=== PATIENT | male | born 1950 | race Caucasian/White ===

== ENCOUNTER 2017-03-17 09:34 | Observation (INO) | payer OTHER, BC ==
[2017-03-17] MEDS ORDERED: ASPIRIN EC 325 MG TAB PO ONE (09:42)
[2017-03-17] MEDS ORDERED: NS 1,000 ML IV ONE (09:42)
[2017-03-17] MEDS ORDERED: DIAZEPAM 5 MG TAB PO ONE (09:42)
[2017-03-17] MEDS ORDERED: diphenhydrAMINE 25 MG CAP PO ONE (09:42)
[2017-03-17] MEDS ORDERED: FAMOTIDINE 20 MG TAB PO ONE (09:42)
--- NOTE | 2017-03-17 09:54 | CPEKG ---
Heart Rate: 78 RR Interval: 769 P-R Interval: 184 QRSD Interval: 144 QT Interval: 444 QTC Interval: 506 P [place]: 61 QRS [place]: -24 T Wave [place]: 142 EKG Severity - ABNORMAL ECG - EKG Impression: SINUS RHYTHM EKG Impression: VENTRICULAR PREMATURE COMPLEX EKG Impression: PROBABLE LEFT ATRIAL ABNORMALITY EKG Impression: LEFT BUNDLE BRANCH BLOCK Electronically Signed By: Kamilla Giraldo 17-Mar-2017 17:09:45
[2017-03-17 10:16] LABS: INR 1.02 (0.83-1.16); PROTIME(PATIENT) 13.3 SEC (12.0-15.0)
[2017-03-17 10:18] LABS: % IMMATURE GRANULYOCYTES 0.3 % (0.0-1.1); ABSOLUTE IMMATURE GRANULOCYTES 0.02 10^3/uL (0.00-0.10); ADD DIFF? NO; ADD MORPH? NO; ADD SCAN? NO; ATYPICAL LYMPHOCYTE FLAG 10 (0-99); FRAGMENT RBC FLAG 0 (0-99); HEMATOCRIT 42.2 % (40.0-51.0); HEMOGLOBIN 14.6 g/dL (13.7-17.5); LEFT SHIFT FLG 0 (0-99); LIPEMIA HEMOLYSIS FLAG 90 (0-99); MEAN CELL HEMOGLOBIN 29.8 pg (27.9-34.1); MEAN CELL HEMOGLOBIN CONCENTR. 34.6 g/dL (32.4-36.7); MEAN CELL VOLUME 86.1 fL (81.5-99.8); MEAN PLATELET VOLUME 10.5 fL (8.7-11.7); PLATELET CLUMPS FLAG 10 (0-99); PLATELET COUNT 219 10^3/uL (150-400); RED CELL DISTRIBUTION WIDTH 12.7 % (11.5-15.2)
[2017-03-17 10:38] LABS: ANION GAP 13 mEq/L (8-16); CALCIUM 9.6 mg/dL (8.5-10.4); CARBON DIOXIDE 23 mEq/l (22-31); CHLORIDE 104 mEq/L (97-110); CHOLESTEROL 127 mg/dL (140-220); CHOLESTEROL/HDL RATIO 2.89 RATIO (1.00-4.97); CREATININE 0.9 mg/dL (0.7-1.3); GLOMERULAR FILTRATION RATE > 60; GLUCOSE 165 mg/dL (70-100); HIGH DENSITY LIPOPROTEIN 44 mg/dL (40-65); LDL/HDL RATIO 1.32 RATIO (1.00-3.64); LOW DENSITY LIPOPROTEIN 58 mg/dL (80-100); MAGNESIUM 1.8 mg/dL (1.6-2.3); NON-HIGH DENSITY LIPOPROTEIN 83 mg/dL (90-129); POTASSIUM 4.2 mEq/L (3.5-5.2); SODIUM 140 mEq/L (134-144); TRIGLYCERIDE 128 mg/dL (40-150); VERY LOW DENSITY LIPOPROTEINS 25 mg/dL (8-25)
[2017-03-17] MEDS ORDERED: LIDOCAINE 1% 30 ML SDV ONE (14:05)
[2017-03-17] MEDS ORDERED: MIDAZOLAM 2 MG/2 ML VIAL ONE ×2 (14:06→15:09)
[2017-03-17] MEDS ORDERED: IOPAMIDOL (ISOVUE-370) 150 ML BTL IV ONE (14:06)
[2017-03-17] MEDS ORDERED: fentaNYL 100 MCG/2 ML INJ ONE (14:06)
[2017-03-17] MEDS ORDERED: BIVALIRUDIN 250 MG/5 ML VIAL IV ONE (15:08)
[2017-03-17] MEDS ORDERED: NITROGLYCERIN 1,500 MCG/15 ML VIAL MISC ONE (15:09)
[2017-03-17] MEDS ORDERED: PRASUGREL HCL 10 MG TAB ONE (15:38)
--- NOTE | 2017-03-17 15:48 | PDDXCAT ---
Diagnostic Cath Note - . 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 No clear luminal irregularities were noted. There is an ostial occlusion of the LCX noted LAD: Medium sized vessel with diffuse, non critical disease. Diag1 (small) with ostial disease. Could not visualize the HIDALGO touchdown on this vessel. LCX: 100% occlusion to the ostium. No appreciable left to left collaterals were noted. RCA: subtotal occlusion to in the mid vessel. Minimal right to right collaterals were noted. Ramus: Medium sized vessel with subtotal occlusion in the proximal vessel. (90% ) rSVG: (1) rSVT to PDA widely patent. Backfill to the 100% occlusion in the [place] RCA. (2) rSVT to OM1 widely patent. Backfill to [place] LCX and with forward flow down the mid LCX HIDALGO: Atretic without appreciable flow past the mid line of the vessel. EDP: not assessed given AVR LVEF: not assessed given AVR Wall motion: not assessed given AVR Complications: none Estimated blood loss: <50ml Closure method: manual pressure (The patient's bifurcation was very high, and closure device is contraindicated) Assessment: 67 y/o male with known CAD s/p 3V CABG about 4 years ago with rSVG to PDA (patent), rSVG to OM/LCX (patent), and HIDALGO to LAD (atretic). Critical lesion to the proximal Ramus vessel. Plan: Dr. Rebeca Oden to perform PCI to the proximal lesion in the Ramus vessel. Intervention: PCI to proximal Ramus
[2017-03-17] MEDS ORDERED: PRASUGREL HCL 10 MG TAB PO ONE (16:13)
[2017-03-17] MEDS ORDERED: LORazepam 2 MG/ML INJ IVP PRN (16:13)
[2017-03-17] MEDS ORDERED: ACETAMINOPHEN 325 MG TAB PO PRN (16:13)
[2017-03-17] MEDS ORDERED: ONDANSETRON 4 MG/2 ML VIAL IVP PRN (16:13)
[2017-03-17] MEDS ORDERED: ATROPINE SULFATE 1 MG/10 ML SYR IVP PRN (16:13)
[2017-03-17] MEDS ORDERED: HYDROCODONE/APAP 5/325 TAB PO PRN (16:13)
[2017-03-17] MEDS ORDERED: TEMAZEPAM 15 MG CAP PO PRN (16:13)
[2017-03-17] MEDS ORDERED: NITROGLYCERIN 0.4 MG BTL SL PRN (16:13)
[2017-03-17] MEDS ORDERED: NS 1,000 ML IV SCH (16:15)
[2017-03-17] MEDS ORDERED: CYCLOBENZAPRINE HCL 2.5 MG PO PRN (16:21)
[2017-03-17] MEDS ORDERED: HYDROCODONE/APAP 5/325 TAB ONE (16:31)
--- NOTE | 2017-03-17 16:55 | CPEKG ---
Heart Rate: 69 RR Interval: 870 P-R Interval: 204 QRSD Interval: 150 QT Interval: 468 QTC Interval: 502 P [place]: 67 QRS [place]: -15 T Wave [place]: 149 EKG Severity - ABNORMAL ECG - EKG Impression: SINUS RHYTHM EKG Impression: PROBABLE LEFT ATRIAL ABNORMALITY EKG Impression: LEFT BUNDLE BRANCH BLOCK Electronically Signed By: Kamilla Giraldo 17-Mar-2017 17:09:49
[2017-03-17] MEDS ORDERED: traMADol 50 MG TAB PO PRN (17:00)
[2017-03-17] MEDS ORDERED: CYCLOBENZAPRINE 10 MG TAB PO SCH (21:00)
[2017-03-17] MEDS ORDERED: RANITIDINE HCL PO SCH (21:00)
[2017-03-17] MEDS ORDERED: FAMOTIDINE 20 MG TAB PO SCH (21:00)
[2017-03-17] MEDS: OMEGA-3 FATTY ACIDS 1,000 MG CAP PO SCH (21:00)
[2017-03-17] MEDS ORDERED: LIRAGLUTIDE 1.2 MG SQ SCH (21:00)
[2017-03-17] MEDS: METOPROLOL TARTRATE 25 MG TAB PO SCH (21:00)
--- NOTE | 2017-03-17 21:23 | CPIP ---
[f rep st] INVASIVE CARDIAC PROCEDURE DATE OF PROCEDURE: 03/17/2017 PROCEDURE PERFORMED: Percutaneous coronary intervention of the ramus intermedius. INDICATIONS FOR PROCEDURE: Please refer to the diagnostic cardiac cath report by Dr. Bryan Herrera. Briefly, the patient is a 67-year-old male with a history of CAD and previous 3 vessel CABG. He pre sented with recurrent angina and an abnormal stress test. His diagnostic cardiac catheterization re vealed multivessel [place] CAD. He had patent saphenous vein grafts to an obtuse marginal branch of the circumflex and to the distal RCA. His HIDALGO graft to the LAD was atretic and nonfunctional becau se the LAD had relatively little disease without a flow-limiting obstruction. There was a small to moderate size ramus intermedius with a focal lesion of 80% to 90% in its proximal portion. Based on the patient's clinical history and diagnostic angiography, the decision was made to perform PCI of the ramus intermedius. DETAILS OF PROCEDURE: The patient received intravenous Angiomax. A 6-[place] CLS 3.5 guide catheter was advanced to the left main. An Intuition guidewire was advanced to the distal portion of the ob tuse marginal branch. Predilatation of the target lesion was performed using a 2.25 x 8 mm Emerge b alloon. A 2.25 x 12 mm Synergy stent was then advanced into position and was deployed at high press ure. Final angiograms demonstrated 0% residual stenosis and DINAH-3 flow. COMPLICATIONS: None. CONCLUSION: Successful percutaneous coronary intervention of the proximal ramus intermedius using a single drug coated stent. /[id number]/MODL
[2017-03-18 05:08] LABS: % IMMATURE GRANULYOCYTES 0.2 % (0.0-1.1); ABSOLUTE IMMATURE GRANULOCYTES 0.02 10^3/uL (0.00-0.10); ADD DIFF? NO; ADD MORPH? NO; ADD SCAN? NO; ATYPICAL LYMPHOCYTE FLAG 0 (0-99); FRAGMENT RBC FLAG 0 (0-99); HEMATOCRIT 40.8 % (40.0-51.0); HEMOGLOBIN 14.1 g/dL (13.7-17.5); LEFT SHIFT FLG 0 (0-99); LIPEMIA HEMOLYSIS FLAG 90 (0-99); MEAN CELL HEMOGLOBIN 29.9 pg (27.9-34.1); MEAN CELL HEMOGLOBIN CONCENTR. 34.6 g/dL (32.4-36.7); MEAN CELL VOLUME 86.6 fL (81.5-99.8); MEAN PLATELET VOLUME 10.8 fL (8.7-11.7); PLATELET CLUMPS FLAG 0 (0-99); PLATELET COUNT 201 10^3/uL (150-400); RED BLOOD CELL COUNT 4.71 10^6/uL (4.40-6.38)
[2017-03-18 05:26] LABS: ALBUMIN 3.9 g/dL (3.5-5.0); ANION GAP 10 mEq/L (8-16); ASPARTATE AMINOTRANSFERASE 37 IU/L (17-59); BILIRUBIN,TOTAL 1.8 mg/dL (0.1-1.4); CALCIUM 9.2 mg/dL (8.5-10.4); CARBON DIOXIDE 24 mEq/l (22-31); CHLORIDE 104 mEq/L (97-110); CREATININE 0.8 mg/dL (0.7-1.3); GLOMERULAR FILTRATION RATE > 60; GLUCOSE 109 mg/dL (70-100); LACTATE DEHYDROGENASE 460 IU/L (313-618); MAGNESIUM 1.9 mg/dL (1.6-2.3); POTASSIUM 4.1 mEq/L (3.5-5.2); SODIUM 138 mEq/L (134-144)
[2017-03-18] MEDS: OMEGA-3 FATTY ACIDS 1,000 MG CAP PO SCH (07:42)
[2017-03-18] MEDS: METOPROLOL TARTRATE 25 MG TAB PO SCH (07:43)
[2017-03-18 07:46] VITALS: BP 133/71
[2017-03-18 08:17] VITALS: PULSE 96; RESP 14; TEMP 98.1; O2SAT 92
[2017-03-18] MEDS ORDERED: PRASUGREL HCL 10 MG TAB PO SCH (09:00)
[2017-03-18] MEDS ORDERED: MULTIVITAMINS 1 EACH TAB PO SCH (09:00)
[2017-03-18] MEDS ORDERED: HYDROCHLOROTHIAZIDE 50 MG TAB PO SCH (09:00)
[2017-03-18] MEDS ORDERED: HYDROCHLOROTHIAZIDE 25 MG TAB PO SCH (09:00)
[2017-03-18] MEDS ORDERED: ASPIRIN EC 325 MG TAB PO SCH (09:00)
--- NOTE | 2017-03-18 09:24 | CPEKG ---
Heart Rate: 81 RR Interval: 741 P-R Interval: 192 QRSD Interval: 144 QT Interval: 436 QTC Interval: 506 P [place]: 38 QRS [place]: 5 T Wave [place]: 176 EKG Severity - ABNORMAL ECG - EKG Impression: SINUS RHYTHM EKG Impression: PROBABLE LEFT ATRIAL ABNORMALITY EKG Impression: LEFT BUNDLE BRANCH BLOCK Electronically Signed By: Kamilla Giraldo 18-Mar-2017 10:06:21
--- NOTE | 2017-03-18 10:17 | PDCARPN ---
Cardiology Progress Note Chief Complaint: Patient doing well today. No cardiovascular complaints. Assessment/Plan: Assessment: Patient is a 67 y/o male with history of CAD s/p CABG (3V) and AVR (2013), pAF ( historically), SSS s/p PPM (and no protracted pAF has been noted), HTN, HLP, and DM, who presented to outpatient cardiology with Dr. Arturo Walker on 03-16-17. There were abnormalities noted on past stress testing as well as symptoms that were concerning to the patient. Given the symptoms and the past testing ( with further history of CAD/CAB), recommendations were for patient to have angiography. Patient was taken to the cardiac orthodontic lab technician yesterday, as an outpatient, with notable critical CAD to the proximal portion of the Ramus. Vein grafts to the PDA and the OM1/LCX systems were patent. HIDALGO to the LAD was noted to be atretic. Dr. Rebeca Oden performed PCI to the critical lesion, and the patient was recovered on the PCU. Overnight, no events were noted. No complaints of chest pains or pressure. Groin site was mildly tender, but otherwise unremarkable. Plan: (1) Recommendations for patient to maintain therapy on Effient for a minimum of one year (2) Would continue therapy on ASA as at present with pAF history (and reported inability to tolerated coumadin/warfarin therapy) (3) Lopressor to continue for both HTN and pAF rate/rhythm control (4) Lipitor to continue for history of HLP, and maintain annual assessment of cholesterol and LFTs (5) HCTZ should continue for further assistance with HTN control (6) Would have patient seen in outpatient clinic by [facility] in 1-2 weeks (7) Cardiac rehab should be established (8) Maintain outpatient oral hypoglycemic therapy for DM as at present Subjective: No complaints. Reviewed/Discussed With: family, multidisciplinary team Objective: Vital Signs (8 Hrs) Temp Pulse Resp BP Pulse Ox 03/18/17 08:15 36.7 C 96 14 133/71 H 92 03/18/17 07:43 82 133/71 H 03/18/17 04:19 36.4 C 98 18 126/81 H 96 Intake/Output (24 Hrs) 03/17/17 03/18/17 03/19/17 05:59 05:59 05:59 Intake Total 250 Output Total 975 Balance -725 Intake: Oral (ml) 250 Output: Urine (ml) 975 Urinal 975 Other: Weight 95 kg Number of Voids Toilet 1 Urinal 2 Result Diagrams: 03/18/17 03:45 03/18/17 03:45 EKG: normal sinus rhythm with LBBB Telemetry: LBBB pattern with normal sinus rhythm - Physical Exam Constitutional: WDWN, healthy appearing, no apparent distress Eyes: PERRL, EOMI Ears, Nose, Mouth, Throat: moist mucous membranes Cardiovascular: regular rate and rhythm, no rubs, systolic murmur, No jugular vein distention Peripheral Pulses: 2+: femoral (R), femoral (L), dorsalis-pedis (R), dorsalis- pedis (L) Respiratory: clear to auscultate bilat, no crackles, no wheezes Gastrointestinal: normoactive bowel sounds Skin: no rashes, no edema Musculoskeletal: no muscular tenderness Neurologic: AAOx3, CN II-XII grossly intact Psychiatric: cooperative, interactive, following commands ICD10 Worksheet Patient Problems: Problems Problem Status Onset Coronary artery disease Acute Diabetes Acute Hyperlipidemia Acute Hypertension Acute Stented coronary artery Acute - ICD10 Problem Qualifiers (1) Coronary artery disease Qualifiers: Coronary Disease-Associated Artery/Lesion type: [place] artery [place] vs. transplanted heart: [place] heart Associated angina: with stable angina Qualified Code(s): I25.118 - Atherosclerotic heart disease of [place] coronary artery with other forms of angina pectoris (2) Stented coronary artery (3) Hypertension Qualifiers: Hypertension type: essential hypertension Qualified Code(s): I10 - Essential (primary) hypertension (4) Hyperlipidemia Qualifiers: Hyperlipidemia type: pure hypercholesterolemia Qualified Code(s): E78.00 - Pure hypercholesterolemia, unspecified; E78.0 - Pure hypercholesterolemia (5) Diabetes Qualifiers: Diabetes mellitus type: type 2 Diabetes mellitus complication status: without complication Diabetes mellitus complication detail: D Diabetic retinopathy severity: D Proliferative retinopathy type: P Diabetes mellitus macular edema: D Diabetes mellitus remote computer terminal operator insulin use: D Laterality: L Chronic kidney disease stage: C
[2017-03-18] MEDS ORDERED: ATORVASTATIN CALCIUM 40 MG TAB PO SCH (21:00)
[2017-03-20 15:19] LABS: 2C19S INTERPRETATION See Comments
== END 2017-03-18 12:56 | disposition home or self-care (01) ==
LOC: FCATH 09:34 → F2W 16:14
PROVIDERS: ADMIT Internal Medicine Interventional Cardiology; ATTEND Internal Medicine Interventional Cardiology
PROC: 027034Z Dilation of Coronary Artery, One Artery with Drug-eluting Intraluminal Device, Percutaneous Approach (ICD-10-PCS; principal; 2017-03-17)
PROC: B213YZZ Fluoroscopy of Multiple Coronary Artery Bypass Grafts using Other Contrast (ICD-10-PCS; principal; 2017-03-17)
PROC: B2151ZZ Fluoroscopy of Left Heart using Low Osmolar Contrast (ICD-10-PCS; principal; 2017-03-17)
PROC: B2111ZZ Fluoroscopy of Multiple Coronary Arteries using Low Osmolar Contrast (ICD-10-PCS; principal; 2017-03-17)
PROC: 4A023N7 Measurement of Cardiac Sampling and Pressure, Left Heart, Percutaneous Approach (ICD-10-PCS; principal; 2017-03-17)
DX: I25.118 Atherosclerotic heart disease of native coronary artery with other forms of angina pectoris (principal); I48.91 Unspecified atrial fibrillation; E11.9 Type 2 diabetes mellitus without complications; E78.00 Pure hypercholesterolemia, unspecified; I10 Essential (primary) hypertension; Q23.1 Congenital insufficiency of aortic valve; I49.5 Sick sinus syndrome; I44.7 Left bundle-branch block, unspecified; Z95.0 Presence of cardiac pacemaker
CPT/HCPCS: 93005; 93455; C1725; C1769; C1874; C1887; C9600; J0583; J1644; J2250; J3010; 81225-90; Q9967

== ENCOUNTER → 2018-07-12 | Outpatient (CLI) | payer OTHER, BC | LOC: BHFA 13:15 | PROVIDERS: ATTEND Internal Medicine Cardiovascular Disease | DX: I48.91 Unspecified atrial fibrillation (principal); I25.10 Atherosclerotic heart disease of native coronary artery without angina pectoris; Q23.1 Congenital insufficiency of aortic valve; I49.5 Sick sinus syndrome ==

== ENCOUNTER → 2018-10-29 | Outpatient (CLI) | payer OTHER, BC | LOC: BHFA 13:15 | PROVIDERS: ATTEND Internal Medicine Cardiovascular Disease | DX: Z95.2 Presence of prosthetic heart valve (principal) ==